=== PATIENT | male | born 1980 ===

== ENCOUNTER 2023-12-23 10:02 | Emergency (ER) | payer BC, SELFPAY ==
--- NOTE | ~2023-12-23 | CT_ITS ---
EXAMINATION: CT ABDOMEN AND PELVIS WITH CONTRAST CLINICAL INFORMATION: Left lower quadrant pain COMPARISON: None available. TECHNIQUE: Multidetector volumetric images were obtained from the superior aspect of the liver through the pubic symphysis following administration 85 mL of Omnipaque 350 intravenous contrast. Sagittal and coronal reformatted images were obtained on the technologist's workstation. Oral contrast: No This CT examination was performed using dose optimization techniques as appropriate, variously including the following: *Automated exposure control *Adjustment of mA and/or kV according to patient size (this includes techniques or standardized protocols for targeted exams where dose is matched to indication/reason for exam; i.e. extremities or head) *Use of iterative reconstruction technique DLP: 441 mGy-cm FINDINGS: LUNG BASES: No suspicious abnormality in the visualized lower chest LIVER, GALLBLADDER, AND BILIARY TREE: There is fatty change in the liver. The liver contour is smooth. There is an approximately 1 cm circumscribed fluid attenuating oval lesion in hepatic segment 2. This is likely a cyst. This does not require any specific imaging follow-up. The gallbladder is not fully distended. No calcified stone. No pericholecystic fluid. No biliary dilation. PANCREAS: No suspicious abnormality. SPLEEN: Within normal limits ADRENAL GLANDS: Normal KIDNEYS AND URETERS: The nephrograms are symmetric. There is no dilation of the urinary collecting system on either side. There is no suspicious renal mass. BLADDER: Within normal limits GASTROINTESTINAL TRACT: There is a large amount of fecal residue in the colon. There is no localized pericolonic fat stranding. No CT evidence of acute appendicitis. No evidence of small bowel obstruction. No suspicious abnormality the stomach. ABDOMINAL WALL: Fat protrudes into the right inguinal canal. LYMPH NODES: There are no enlarged abdominal or pelvic lymph nodes. There is no free intraperitoneal fluid. VASCULAR: There is no abdominal aortic aneurysm. The portal vein enhances. PELVIC VISCERA: Within normal limits OSSEOUS STRUCTURES: No suspicious abnormality CT/CT abdomen pelvis w IV con IMPRESSION: No etiology for acute left lower quadrant pain. No evidence of urinary, biliary or GI tract obstruction. Fleischner guidelines were followed.
[2023-12-23 10:30] VITALS: BP 127/94; PULSE 65; RESP 16; TEMP 36.3; O2SAT 98; BMI 27.5
[2023-12-23 10:49] LABS: MANUAL DIFF FLAG NO
[2023-12-23 10:50] LABS: Basophils Percent Auto 0.5 % (0-2); Eosinophils Absolute Auto 0.2 X10*3/uL (0.0-0.4); Eosinophils Percent Auto 2.1 % (0-4); Hematocrit 45.2 % (42.0-52.0); Imm Gran Abs Auto 0.02 X10*3/uL (0.00-0.03); Imm Gran Pct Auto 0.3 % (0.0-0.4); Lymphocytes Absolute Auto 2.6 X10*3/uL (1.2-4.9); Lymphocytes Percent Auto 32.3 % (20-40); Mean Corpuscular HGB Conc 35.4 g/dl (31.0-36.0); Mean Corpuscular Hemoglobin 31.7 pg (27.0-33.0); Mean Corpuscular Volume 89.7 fL (80.0-98.0); Mean Platelet Volume 9.7 fL (9.4-12.4); Monocytes Absolute Auto 0.5 X10*3/uL (0.1-1.2); Monocytes Percent Auto 6.3 % (2-11); Neutrophils Absolute Auto 4.6 x10*3/uL (2.0-8.3); Neutrophils Percent Auto 58.5 % (45-73); Platelet Count 225 X10*3/uL (160-400); Red Blood Count 5.04 X10*6/uL (4.60-5.80); Red Cell Distribution Width 12.1 % (11.0-16.0); White Blood Count 7.9 X10*3/uL (4.8-10.8)
[2023-12-23 11:10] LABS: Alanine Aminotransferase 31 U/L (0-40); Albumin Level 4.5 g/dL (3.5-5.0); Alkaline Phosphatase 60 U/L (39-117); Anion Gap 10 (12-20); Aspartate Amino Transferase 17 U/L (5-37); Bilirubin Total 0.4 mg/dL (0.0-1.0); Blood Urea Nitrogen 13 mg/dL (9-16); Calcium 9.4 mg/dL (8.4-10.2); Carbon Dioxide 30 mmol/L (22-29); Chloride 104 mmol/L (96-108); Creatinine Clr Calc Pharmacy 103.7; Estimated Glomerular Filt Rate > 60; Glucose Random 98 mg/dL (60-115); Lipase 12 U/L (8-78); Potassium 3.9 mmol/L (3.3-5.1); Sodium 140 mmol/L (135-145); Total Protein 7.2 g/dL (6.5-8.0)
[2023-12-23 14:06] LABS: Appearance Urine Clear; Color Urine Yellow; Glucose Urine UA Negative (Negative); Leukocyte Esterase Urine Negative (Negative); Nitrite Urine Negative (Negative); PH 6.5 (5.0-9.0); Urine Blood Negative (Negative); Urine Ketones Negative (Negative); Urine Protein Negative (Neg-Trace)
--- NOTE | 2023-12-23 14:42 | ED.ABDPAIN ---
HPI - Abdominal Pain General Chief Complaint: Abdominal Pain Stated Complaint: L flank pain/Nausea Time Seen by Provider: 12/23/23 14:35 Source: patient Mode of arrival: ambulatory Limitations: no limitations History of Present Illness HPI narrative: 43-year-old male s/p appendectomy presents to the emergency department with complaints of left-sided abdominal, flank, and back pain for last 2 weeks with associated nausea. He reports pain is constant and describes it as dull. He reports he is also had a recent history of constipation. States his recently had her gallbladder removed and that the 2 of them have had significant changes to her diet. He reports his abdominal pain is worsened spicy foods. He denies any chest pain, shortness of breath, dysuria, urinary hesitancy, hematuria, melena, BRBPR, fever, chills. Pertinent positives and negatives discussed in HPI Related Data Allergies Allergy/AdvReac Type Severity Reaction Status Date / Time No Known Allergies Allergy Verified 12/23/23 10:33 Review of Systems Review of Systems Yes all other systems are reviewed and are negative [facility] Social History Social History Advance Directives: No Advance Directives Information Provided: Yes Physical Exam ED Vital Signs: Vital Signs - 24 hr 12/23/23 10:30 12/23/23 15:48 12/23/23 17:31 Temperature 97.4 F 97.4 F 98.1 F Pulse Rate 65 64 59 Respiratory Rate 16 16 16 Blood Pressure 127/94 H 112/68 137/69 Pulse Oximetry 98 98 97 Oxygen Delivery Method Room Air Room Air Room Air 12/23/23 17:36 Temperature 98.1 F Pulse Rate 59 Respiratory Rate 16 Blood Pressure 137/64 Pulse Oximetry 97 Oxygen Delivery Method Room Air BMI result Body Mass Index 27.5 Nursing notes and vital signs reviewed. GENERAL APPEARANCE: A&0 x 4, generally well appearing, no acute distress HENMT: Normal to inspection, atraumatic, face symmetrical. Normal external ears, nose, and oropharynx clear. EYE: PERRLA, EOM intact, structures appear normal NECK: Supple without lymphadenopathy. No stiffness or restricted ROM. CHEST: Normal to inspection HEART: Normal rate and regular rhythm, normal S1/S2, no M/R/G LUNGS: LS CTA, moving air well. Able to speak in complete sentences. No crackles, wheezes, or rhonchi auscultated ABDOMEN: Soft, nondistended. LLQ tender to palpation. Normal bowel sounds noted BACK: No CVAT, no obvious deformity EXTREMITIES: Moving all extremities without difficulty. No cyanosis, clubbing, or edema. Normal capillary refill. NEUROLOGICAL: Alert and oriented, moving all 4 extremities with equal strength. CN not formally tested but appearing grossly intact. Observed to ambulate with normal gait. Cognition normal SKIN: Warm and dry without any lesions, rash, or visible sores PSYCH: Cooperative, normal affect, normal thought process Medical Decision Making Medical Decision Making MDM Narrative: Old records reviewed for previous imaging, lab studies, ECGs, and notes. Patient was assessed the emergency department with no acute distress or toxicity noted. Blood work unremarkable with no signs of leukocytosis and urinalysis showing no evidence of acute UTI or hematuria. CT abdomen/pelvis completed which I have independently interpreted as negative for acute findings. Radiologist remarks on a large amount of fecal residue in the colon with no etiology for acute left lower quadrant pain noted. Patient educated to increase his fluid intake and to use either stool softeners or MiraLax to aid in moving his bowels. Patient is safe for discharge at this time with plan for [id number] Tylenol and/or NSAID such as ibuprofen or naproxen for fever/discomfort with dosing as per packaging. HPI, PE, diagnostics, and plan discussed with patient and family with no unanswered questions at this time. Strict return precautions given to return to the emergency department with new, worsening, or concerning emergent symptoms. Recommended to follow-up with there primary care provider in 24-48 hours for further treatment and management. Differential Diagnosis Differential Diagnoses: The differential diagnosis associated with the presentation includes but not limited to UTI, cystitis, pyelonephritis, nephrolithiasis, SBO, perforation, cholecystitis, diverticulitis, sepsis, malignancy Lab Data [facility] Lab Attestation statement: I reviewed the patient's lab results. 12/23/23 10:43 12/23/23 10:43 Labs: Lab Results 12/23/23 12/23/23 Range/Units 10:43 13:30 WBC 7.9 (4.8-10.8) X10*3/uL RBC 5.04 (4.60-5.80) X10*6/uL Hgb 16.0 (14.0-18.0) g/dl Hct 45.2 (42.0-52.0) % MCV 89.7 (80.0-98.0) fL MCH 31.7 (27.0-33.0) pg MCHC 35.4 (31.0-36.0) g/dl RDW 12.1 (11.0-16.0) % Plt Count 225 (160-400) X10*3/uL MPV 9.7 (9.4-12.4) fL Immature Gran % (Auto) 0.3 (0.0-0.4) % Neut % (Auto) 58.5 (45-73) % Lymph % (Auto) 32.3 (20-40) % [place] % (Auto) 6.3 (2-11) % Eos % (Auto) 2.1 (0-4) % Baso % (Auto) 0.5 (0-2) % Lymph # (Auto) 2.6 (1.2-4.9) X10*3/uL [place] # (Auto) 0.5 (0.1-1.2) X10*3/uL Eos # (Auto) 0.2 (0.0-0.4) X10*3/uL Baso # (Auto) 0.0 (0.0-0.2) X10*3/uL Abs Immat Gran (auto) 0.02 (0.00-0.03) X10*3/uL Absolute Neuts (auto) 4.6 (2.0-8.3) x10*3/uL Absolute Nucleated RBC 0.000 (0.0-0.012) X10*3/uL Nucleated RBC % (auto) 0.0 (0.0-0.2) /100WBC Sodium 140 (135-145) mmol/L Potassium 3.9 (3.3-5.1) mmol/L Chloride 104 (96-108) mmol/L Carbon Dioxide 30 H (22-29) mmol/L Anion Gap 10 L (12-20) BUN 13 (9-16) mg/dL Creatinine 0.91 (0.5-1.4) mg/dL Estim Creat Clear Calc 103.7 Estimated GFR > 60 Random Glucose 98 (60-115) mg/dL Calcium 9.4 (8.4-10.2) mg/dL Total Bilirubin 0.4 (0.0-1.0) mg/dL AST 17 (5-37) U/L ALT 31 (0-40) U/L Alkaline Phosphatase 60 (39-117) U/L Total Protein 7.2 (6.5-8.0) g/dL Albumin 4.5 (3.5-5.0) g/dL Lipase 12 (8-78) U/L Urine Color Yellow Urine Appearance Clear Urine pH 6.5 (5.0-9.0) Ur Specific [place] 1.010 (1.005-1.025) Urine Protein Negative (Neg-Trace) mg/dL Urine Glucose (UA) Negative (Negative) mg/dL Urine Ketones Negative (Negative) mg/dL Urine Blood Negative (Negative) Urine Nitrite Negative (Negative) Ur Leukocyte Esterase Negative (Negative) Independent Interpretation I performed an independent interpretation of an: CT Scan Interpretation: as negative for acute findings Independent Historian Clinical information obtained from an independent historian. History obtained from or confirmed by: Spouse Medications Administered Discontinued Medications Generic Name Dose Route Start Last Admin Trade Name Freq PRN Reason Stop Dose Admin Iohexol 85 ml 12/23/23 16:27 12/23/23 16:28 Iohexol 350 Mg/Ml 100 Ml Infus..Btl IV 12/23/23 16:28 85 ml ONCE ONE Administration Discharge Plan Discharge Clinical Impression: Constipation, Abdominal pain in male Patient Disposition: Home, Self-Care Instructions: Constipation (ED), Abdominal Pain (ED) Referrals: Linn Moctezuma MD [Primary Care Provider] - Stand Alone Forms: Work/School Release Interventions: ED Discharge Assessment Last Done: 12/23/23 17:36 Discharge Date/Time: 12/23/23 17:37 Print Language: Macedonian
[2023-12-23 15:48] VITALS: BP 112/68; PULSE 64; RESP 16; TEMP 36.3; O2SAT 98
[2023-12-23] MEDS: iohexoL 350 MG/ML 100 ML INFUS..BTL 85 ML IV (16:28)
[2023-12-23 17:31] VITALS: BP 137/69; PULSE 59; RESP 16; TEMP 36.7; O2SAT 97
[2023-12-23 17:36] VITALS: BP 137/64; PULSE 59; RESP 16; TEMP 36.7; O2SAT 97
== END 2023-12-23 17:37 | disposition home or self-care (01) ==
PROVIDERS: Emergency Provider Emergency Medicine Emergency Medical Services; PCP Internal Medicine
DX: K59.00 Constipation, unspecified (principal); R10.9 Unspecified abdominal pain
CPT/HCPCS: 36415; 74177; 80053; 81003; 83690; 85025; 99283; 99284; Q9967